=== PATIENT | male | born 1950 | race Caucasian/White ===

== ENCOUNTER → 2023-01-10 14:20 | Outpatient (REF) | payer MEDICARE, SELFPAY ==
--- NOTE | 2023-01-10 14:27 | CA_ITS ---
Transthoracic Echocardiogram Patient (Last, First, Middle): Alex Arevalo T Gender: Male Date of : 1950 Age: 72 Procedure Date: 01/10/2023 Procedure Type: Transthoracic Echocardiogram Location: [facility] Height: 167.64 cm Weight: 68.04 kg BSA: 1.77 m2 Heart Rate: bpm BP: 118 / 60 mmHg Temperer: Referring MD: Boris Schafer MD Symptoms: CVA,UNSPECIFIED Study Quality: Good ECG Rhythm: Sinus Conclusions: - The left ventricular systolic function is normal. The calculated ejection fraction is 55% by biplane method. - No obvious valvular pathology seen on this study. Findings Left Ventricle Normal left ventricular cavity size. There is mildly increased left ventricular wall thickness. The left ventricular systolic function is normal. The calculated ejection fraction is 55% by biplane method. There is no evidence of regional wall motion abnormalities. Diastolic function is normal for age. LV peak GLS -18.2%. Right Ventricle Normal right ventricular cavity size and systolic function. Atria Both atria are normal in size. Aortic Valve There is a normal trileaflet aortic valve. There is no aortic valve stenosis. There is trace (trivial) aortic valve regurgitation. Mitral Valve The mitral valve appears normal. There is trace mitral valve regurgitation. There is no mitral valve stenosis. Pulmonic Valve The pulmonic valve is likely normal. Tricuspid Valve Normal tricuspid valve structure. There is trace tricuspid valve regurgitation. There is no evidence of pulmonary hypertension. Great Vessels The asc aorta is normal in size. Small plaque is seen in the sino tubular ridge. Venous The inferior vena cava is normal in size and collapses greater than 50% with inspiration. Pericardium/Pleural There is no evidence of pericardial effusion. Prior Study Comparison No prior study available for comparison. Recommendations, Care & Conclusions No obvious valvular pathology seen on this study. Measurements 2D Linear Measurements IVSd: 1.20 0.6-0.9/0.6-1.0 cm LVIDd: 4.00 3.9-5.3/4.2-5.9 cm LVIDd Index: 2.26 2.4-3.2/2.2-3.1 cm/m2 LVIDs: 2.67 2.0-3.6 cm LVPWd: 1.24 0.7-1.1 cm Ao Root: 3.90 2.1-3.5 cm LA Diam: 3.20 2.7-3.8/3.0-4.0 cm LAIDs Index: 1.81 1.5-2.3 cm/m2 LV Mass: 211.21 67-162/88-224 g LV Mass Index: 119.33 43-95/49-115 g/m2 LVOT Diam: 2.30 3.0+(-)1.3 cm 2D Systolic Function EF 4C: 55.20 >55% EF 2C: 56.40 >55% EF BiP: 55.10 >55% Mitral Valve MV Pk E: 0.57 MV PK A: 1.01 MV Decel Time: 212.00 E/A: 0.60 E'Lateral: 6.20 E'Medial: 4.68 E/E' Med: 12.10 E/E' Lat: 9.10 PHT: 62.00 MVA PHT: 3.55 Decel [place]: 2.66 Aortic Valve AoV Pk Anuel: 1.36 AoV Mn Anuel: 0.87 AoV VTI: 0.34 AoV Pk Grad: 7.00 Aov Mn Grad: 4.00 ANDRE Cont.VTI: 1.91 LVOT LVOT Pk Anuel: 0.64 LVOT Mn Anuel: 0.40 LVOT VTI: 0.16 LVOT Pk Grad: 2.00 LVOT Mn Grad: 1.00 LVOT Diam: 2.30 LVOT Area: 4.15 Diastolic Function MV Pk E: 0.57 MV Pk A: 1.01 E/A: 0.60 E'Medial: 4.68 E/E' Med: 12.10 E' Laterial: 6.20 E/E' Lat: 9.10 Right Ventricle TAPSE (mm): 27.00 TVS' Anuel: 13.00 Tricuspid Valve TR Pk Anuel: 2.07 TR Pk Grad: 17.00 RA Press: 3.00 RVSP: 20.00 Great Vessels Aorta Ao Root-2D: 3.90 2.0-3.7 cm Ao Asc: 3.40 2.1-3.4 cm Pulmonary Valve PV Pk Anuel: 0.92 Peak PV Grad: 3.00 Updated in Other Vendor System with Status of Final Mati Rice MD electronically signed on 01/10/2023 4:48:01 PM with status of Final
== END ==
LOC: HO.CARD 14:20
PROVIDERS: PCP Family Medicine; Visit Provider Family Medicine
DX: I63.9 Cerebral infarction, unspecified (principal)
CPT/HCPCS: 93306; 93356